=== PATIENT | female | born 1995 | race Caucasian/White ===

== ENCOUNTER 2016-11-17 02:24 | Emergency (ER) | payer MEDICAID ==
[~2016-11-17] VITALS: Ht 157.5 cm; Wt 72.0 kg
[2016-11-17 05:05] VITALS: BP 113/61
[2016-11-17] MEDS ORDERED: BACITRACIN ZINC OINT UDPKT TOP ONE (05:15)
== END 2016-11-17 05:20 | disposition home or self-care (01) ==
LOC: ER 02:38
DX: M79.632 Pain in left forearm (principal); M79.642 Pain in left hand; V13.4XXA Pedal cycle driver injured in collision with car, pick-up truck or van in traffic accident, initial encounter; Y93.55 Activity, bike riding; Y99.8 Other external cause status; Y92.89 Other specified places as the place of occurrence of the external cause
CPT/HCPCS: 73060; 73080; 73090; 73130; 81025; 99284; Z7610